=== PATIENT | male | born 1965 | race Caucasian/White ===

== ENCOUNTER 2020-12-27 10:50 | Emergency (ER) | payer MEDICARE ==
[~2020-12-27] VITALS: Ht 188 cm; Wt 133.6 kg
[2020-12-27 10:54] VITALS: BP 174/99
--- NOTE | 2020-12-27 11:30 | NUR ---
PT STATES HE NEEDS PRESCRIPTION FOR SEROQUEL.
[2020-12-27] MEDS ORDERED: QUET300T5 PO (11:39)
== END 2020-12-27 12:02 | disposition home or self-care (01) ==
LOC: ED 11:30
DX: F41.9 Anxiety disorder, unspecified (principal); Z76.0 Encounter for issue of repeat prescription; F17.210 Nicotine dependence, cigarettes, uncomplicated
CPT/HCPCS: 99281; 99406